=== PATIENT | female | born 1990 | race African-American/Black ===

== ENCOUNTER 2024-09-24 08:43 | Emergency (ER) | payer SELFPAY ==
--- NOTE | ~2024-09-24 | US_ITS ---
FIRST TRIMESTER ULTRASOUND 09/24/2024 12:25 CDT Ordering provider: Natalie Chen APRN History: . vaginal spotting and intermittent cramping, + preg . Comparison: None. FINDINGS: INTRAUTERINE GESTATIONAL SAC: Present. Measuring 1.7 cm. Possible small subchorionic hemorrhage is noted. YOLK SAC: Present. Measures 0.3 cm. POLE: Present. Measures 0.53 cm equivalent to 6 weeks and 2 days. heart rate is 120 bpm. GESTATIONAL AGE BY TODAY'S US: 6 weeks and 2 days. UTERUS: The uterus measures 9.2 x 5.2 x 7.2 cm. in length which is within normal limits. No myometria l masses. FREE FLUID: None. OVARIES: Normal in size with the right measuring 3.5 x 2.8 x 2.1 cm. and the left measuring 3 x 1.9 x 2.2 cm. Doppler flow is demonstrated within both ovaries. ADNEXAL MASSES: None. IMPRESSION: Intrauterine with single live fetus of 6 weeks and 2 days. Possible small subchorionic hemo rrhage is seen measuring 1.3 x 0.7 x 1.1 cm. Reviewed, dictated and finalized at location A. IMPRESSION: Intrauterine with single live fetus of 6 weeks and 2 days. Possible s mall subchorionic hemorrhage is seen measuring 1.3 x 0.7 x 1.1 cm.
[2024-09-24 08:46] VITALS: BP 148/89; PULSE 79; RESP 18; TEMP 36.3
[2024-09-24 09:45] VITALS: BP 130/88; PULSE 70; RESP 16; O2SAT 100
--- NOTE | 2024-09-24 11:00 | PC.NURSE ---
Report given to JOSS Callahan
[2024-09-24 11:05] VITALS: BP 129/80; PULSE 72; RESP 16; O2SAT 100
[2024-09-24 11:43] LABS: BEDSIDEPREGUCG Positive (Negative)
[2024-09-24 11:45] LABS: Basophils Percent Auto 0.7 % (0.2-1.2); Eosinophils Absolute Auto 0.1 K/mm3 (0-0.3); Eosinophils Percent Auto 1.4 % (0-4.4); Hematocrit 38.2 % (37.0-47.0); Hemoglobin 12.7 g/dL (12.0-15.0); Immature Granulocyte Absolute 0.02 K/mm3 (0.00-0.031); Immature Granulocyte Percent A 0.4 % (0-0.5); Lymphocytes Absolute Auto 2.31 K/mm3 (0.9-3.2); Lymphocytes Percent Auto 40.7 % (18.3-44.2); Mean Corpuscular HGB Conc 33.2 g/dl (32-36); Mean Corpuscular Hemoglobin 29.1 pg (26-34); Mean Corpuscular Volume 87.4 fl (80-100); Mean Platelet Volume 8.5 fl (7.4-10.4); Monocytes Absolute Auto 0.4 K/mm3 (0.1-0.6); Monocytes Percent Auto 6.9 % (2.6-8.5); Neutrophils Absolute Auto 2.8 K/mm3 (1.3-6.7); Neutrophils Percent Auto 49.9 % (45.5-73.1); Platelet Count Result 350 k/mm3 (150-375); Red Blood Count 4.37 M/mm3 (4.2-5.4); White Blood Count 5.7 K/mm3 (4.5-10.0)
[2024-09-24 11:47] LABS: Add Urine Microscopic? NO; Appearance Urine Clear (Clear); Bilirubin Urine Negative (Negative); Blood Urine Negative (Negative); Color Urine Yellow (Yellow); Glucose Urine UA Negative (Negative); Ketones Urine Negative (Negative); Leukocyte Esterase Ur Negative LEU/UL (Negative); Nitrate Urine Negative (Negative); Protein Urine Negative (Negative); Urobilinogen Urine 0.2 mg/dL (<2.0); pH Urine 7.5 (5.0-9.0)
[2024-09-24 12:02] LABS: Alanine Aminotransferase 15 U/L (6-35); Albumin Level 4.7 g/dL (3.5-5.1); Alkaline Phosphatase 46 U/L (38-126); Anion Gap 10 mmol/L (4-12); Aspartate Amino Transferase 22 U/L (14-36); Bilirubin,Total 1.2 mg/dL (0.2-1.3); Blood Urea Nitrogen 8 mg/dL (7-17); Calcium 9.6 mg/dL (8.4-10.2); Carbon Dioxide 23 mmol/L (22-30); Chloride 104 mmol/L (98-107); Estimated CRCL calculation 92 ml/min; Estimated Glomerular Filt Rate > 60; Glucose 86 mg/dL (65-110); Potassium 4.3 mmol/L (3.4-5.0); Sodium 137 mmol/L (137-145); Total Protein 7.9 g/dL (6.3-8.2)
--- NOTE | 2024-09-24 12:22 | PC.NURSE ---
Per EDP, Natalie Chen APRN okay to let pt know her bedside test was positive. Pt informed of test results.
--- NOTE | 2024-09-24 12:28 | ED_ITS ---
HPI - Female Genitourinary General Chief complaint: Urogenital-Female Stated complaint: Bladder spasms Time Seen by Provider: 09/24/24 09:33 History of Present Illness HPI Narrative: Patient is a 34-year-old female who presents to the ER with vaginal spotting and intermittent pelvic cramping. She reports she is unsure whether not she is has not taken any at home tests. Patient reports her last menstrual period was on August 09, 2024. She reports she is sexually active and does not use protection. Patient denies any previous pregnancies. She reports she has seen an OBGYN in the past but has not seen one in at least a year. Patient denies any back pain, abdominal pain, urinary symptoms or recent fevers. She denies any medical history relevant to this ER visit. Related Data Allergies Allergy/AdvReac Type Severity Reaction Status Date / Time No Known Allergies Allergy Unverified 09/24/24 09:38 Review of Systems 2 Review of Systems: All systems reviewed & are unremarkable except as noted in HPI and below Exam 2 Narrative: GENERAL: Well appearing, well-nourished, non-toxic, in no acute distress. HEAD: Normocephalic, atraumatic. NECK: Supple. No adenopathy, no masses. RESPIRATORY: Airway patent, respirations nonlabored. Clear to auscultation bilaterally, no rales, rhonchi, wheezing. CARDIOVASCULAR: Regular rate and rhythm without murmurs, rubs, or gallops. Peripheral pulses 2+ and equal bilaterally. ABDOMINAL: Soft, tender LLQ, nondistended, no hepatosplenomegaly. Normoactive BS. MUSCULOSKELETAL: Moves all extremities. Strength/ROM intact without gross deformities. SKIN: Warm, dry, normal color. No rashes. NEURO: A&O X3. Speech clear. Cranial nerves II-XII intact. No ataxic movements. PSYCHIATRIC: Appropriate mood and affect. Normal interaction. Course Vital Signs Vital signs: Vital Signs Temperature 36.3 C L 09/24/24 08:46 Pulse Rate 79 09/24/24 08:46 Respiratory Rate 18 09/24/24 08:46 Blood Pressure 148/89 H 09/24/24 08:46 Temperature 36.3 C L 09/24/24 08:46 Pulse Rate 72 09/24/24 11:05 Respiratory Rate 16 09/24/24 11:05 Blood Pressure 129/80 09/24/24 11:05 Pulse Oximetry 100 09/24/24 11:05 MDM - Female Genitourinary MDM Narrative Medical decision making narrative: Patient is a 34-year-old female who presents to the ER with vaginal spotting and intermittent pelvic cramping. She reports she is unsure whether not she is has not taken any at home tests. Patient reports her last menstrual period was on August 09, 2024. She reports she is sexually active and does not use protection. Patient denies any previous pregnancies. She reports she has seen an OBGYN in the past but has not seen one in at least a year. Patient denies any back pain, abdominal pain, urinary symptoms or recent fevers. She denies any medical history relevant to this ER visit. Labs Ordered: CBC, CMP, UA, beta hCG quant, Rh immunoglobulin, Trichomonas, GC chlamydia Imaging Ordered: Ultrasound Ob less than 14 weeks Medications Ordered: Flagyl 2 g p.o. Results: [place] [address]. Her CMP and CBC are unremarkable besides a creatinine of 0.56. Patient's urine was negative for a urinary tract infection. Her Trichomonas swab was positive but her chlamydia and gonorrhea swabs were negative. Patient's ultrasound indicates an intrauterine with single live fetus of 6 weeks and 2 days. Possible small subchorionic hemorrhage is seen measuring 1.3 x 0.7 x 1.1 cm. Diagnosis: intrauterine , Trichomonas, mild vaginal bleeding Consults: OBGYN (outpatient) Patient Education/Shared MDM: Results of lab work and imaging shared with patient. Patient strongly advised to maintain hydration status upon discharge and follow-up with OBGYN as soon as possible. She will be discharged home with a prescription for vitamins. Strict return precautions provided. Patient verbalized understanding and is in agreement with plan. Vital signs stable at time of discharge. All questions answered. Differential Diagnosis Differential diagnosis: Likely urinary tract infection, trichomoniasis and dysmenorrhea Lab Data Attestation: I reviewed the patient's lab results. 09/24/24 11:35 09/24/24 11:35 Labs: Lab Results 09/24/24 09/24/24 Range/Units 11:35 11:41 WBC 5.7 (4.5-10.0) K/mm3 RBC 4.37 (4.2-5.4) M/mm3 Hgb 12.7 (12.0-15.0) g/dL Hct 38.2 (37.0-47.0) % MCV 87.4 (80-100) fl MCH 29.1 (26-34) pg MCHC 33.2 (32-36) g/dl RDW 13.0 (11.5-14.5) % Plt Count 350 (150-375) k/mm3 MPV 8.5 (7.4-10.4) fl Immature Gran % (Auto) 0.4 (0-0.5) % Neut % (Auto) 49.9 (45.5-73.1) % Lymph % (Auto) 40.7 (18.3-44.2) % [place] % (Auto) 6.9 (2.6-8.5) % Eos % (Auto) 1.4 (0-4.4) % Baso % (Auto) 0.7 (0.2-1.2) % Lymph # (Auto) 2.31 (0.9-3.2) K/mm3 [place] # (Auto) 0.4 (0.1-0.6) K/mm3 Eos # (Auto) 0.1 (0-0.3) K/mm3 Baso # (Auto) 0.0 (0.0-0.1) K/mm3 Abs Immat Gran (auto) 0.02 (0.00-0.031) K/mm3 Absolute Neuts (auto) 2.8 (1.3-6.7) K/mm3 Absolute Nucleated RBC 0.000 (0.0-0.012) K/mm3 Nucleated RBC % 0.0 (0.0-0.2) % Sodium 137 (137-145) mmol/L Potassium 4.3 (3.4-5.0) mmol/L Chloride 104 (98-107) mmol/L Carbon Dioxide 23 (22-30) mmol/L Anion Gap 10 (4-12) mmol/L BUN 8 (7-17) mg/dL Creatinine 0.56 L (0.7-1.0) mg/dL Estim Creat Clear Calc 92 ml/min Estimated GFR > 60 (59 - ) Glucose 86 (65-110) mg/dL Calcium 9.6 (8.4-10.2) mg/dL Total Bilirubin 1.2 (0.2-1.3) mg/dL AST 22 (14-36) U/L ALT 15 (6-35) U/L Alkaline Phosphatase 46 (38-126) U/L Total Protein 7.9 (6.3-8.2) g/dL Albumin 4.7 (3.5-5.1) g/dL Beta HCG, Quant 41373.00 mIU/ML Urine Color Yellow (Yellow) Urine Appearance Clear (Clear) Urine pH 7.5 (5.0-9.0) Ur Specific [place] 1.010 (1.001-1.035) Urine Protein Negative (Negative) mg/dL Urine Glucose (UA) Negative (Negative) mg/dL Urine Ketones Negative (Negative) mg/dL Ur Blood (Man) Negative (Negative) Urine Nitrate Negative (Negative) Urine Bilirubin Negative (Negative) Urine Urobilinogen 0.2 (<2.0) mg/dL Leukocyte Esterase Rfl Negative (Negative) LISA/UL POC Urine HCG, Qual Positive (Negative) C. trachomatis (PCR) Not detected (NOT DETECTE) N. gonorrhoeae (PCR) Not detected (NOT DETECTE) T. vaginalis (PCR) Detected A (NOT DETECTE) Blood Type AB Positive Antibody Screen Negative Screen Not Reportable Baby's Blood Type Not Reportable Baby's TOMÁS Not Reportable Doses of RhIg Required 0 Imaging Data Attestation: I personally reviewed and interpreted this imaging study as follows: Radiologist's impression: Impressions Obstetrics Ultrasound 09/24/24 13:26 IMPRESSION: Intrauterine with single live fetus of 6 weeks and 2 days. Possible small subchorionic hemorrhage is seen measuring 1.3 x 0.7 x 1.1 cm. Discharge Plan Discharge Clinical Impression: Trichomoniasis, Intrauterine Patient Disposition: Home Condition: Stable Instructions: Antibiotic Form, Trichomoniasis (ED), at 7 to 10 Weeks (ED) Additional Instructions: Please return to the ER with any worsening symptoms. Follow-up with OBGYN as soon as possible. Please take a vitamin every day. Remember to drink lots of water. Please have your sexual partner tested and treated for STDs. Patient Language: [place] Islander Prescriptions: New vit 10-iron fum-folic 65-1 mg tablet 1 tablet PO DAILY Qty: 90 0RF Follow-up/Referrals: PHYSICIAN,SIMULATION EDUCATOR [Primary Care Provider] - Stand Alone Forms: Work/School Release IP Time of Disposition: 13:53
[2024-09-24 13:19] LABS: Chlamydia trachomatis NOT DETECTED (NOT DETECTE); Neisseria gonorrhoeae PCR NOT DETECTED (NOT DETECTE)
[2024-09-24] MEDS: metroNIDAZOLE 500 MG TABLET 2000 MG PO (13:27)
== END 2024-09-24 14:02 | disposition home or self-care (01) ==
PROVIDERS: Emergency Provider Registered Nurse
DX: A59.9 Trichomoniasis, unspecified (principal); Z33.1 Pregnant state, incidental
CPT/HCPCS: 36415; 76801; 76817; 80053; 81003; 81025; 84702; 85025; 85461; 86850; 86900; 86901; 87491; 87591; 87661; 99284; A9270